=== PATIENT | male | born 1940 | race Caucasian/White ===

== ENCOUNTER 2017-05-03 10:12 | Day surgery (SDC) | payer MEDICARE ==
[~2017-05-03 10:12] MED LIST: LACTATED RINGERS 1,000 ML IV SCH; LIDOCAINE 1% 20 ML VIAL (10MG/ML) FOR IV START INTRADERMA PRN
[2017-05-03 10:45] VITALS: RESP 16; TEMP 97.9
[2017-05-03] MEDS ORDERED: LIDOCAINE 1% INJ 10MG/ML (20 ML MDV) ONE (11:16)
[2017-05-03] MEDS ORDERED: PROPOFOL 10 MG/ML 20 ML VIAL IV ONE (11:16)
--- NOTE | 2017-05-03 11:46 | P.PCN ---
Date of Procedure: 05/03/17 Procedure(s) Performed: Brief history: Patient is a pleasant 76-year-old white male, scheduled for an elective upper endoscopy as well as colonoscopy as a part of evaluation of abdominal pain and Hemoccult-positive stool. Procedure performed: Esophagogastroduodenoscopy with biopsy Colonoscopy Preoperative diagnosis: Abdominal pain Hemoccult-positive stool Anesthesia: [facility] Procedure: After informed consent was obtained from the patient was brought into the endoscopy unit and IV sedation was administered by anesthesia under continuous monitoring. Initially upper endoscopy was done. The Olympus GF 160 video endoscope was inserted inserted into the mouth and esophagus intubated without any difficulty and was gradually advanced into the stomach and duodenum and carefully examined. The bulb and second part of the duodenum appeared normal. The scope was then withdrawn into the stomach adequately insufflated with air and upon careful examination the antrum had mild patchy areas of erythema consistent with gastritis and biopsies were done from this area. The body, cardia and fundus appeared normal. The scope was then withdrawn into the esophagus. The GE junction was located at 40 cm to the incisors. It appeared regular with no erythema erosions or ulcerations. Rest of the esophagus appeared normal. Patient tolerated the procedure well. At this time the patient continued to remain sedation. Initial digital rectal examination was normal. Olympus CF 160 video colonoscope was then inserted into the rectum and gradually advanced to the cecum without any difficulty. Careful examination was performed as the scope was gradually being withdrawn. The prep was excellent. The cecum, ascending colon, transverse colon, descending colon, sigmoid colon and rectum appeared normal. Retroflexion was performed in the rectum and no lesions were noted. Patient tolerated the procedure well. Impression: 1. Upper endoscopy revealed mild antral gastritis but no evidence of esophagitis or peptic ulcer disease 2. Colostomy revealed scattered sigmoid diverticulosis but no evidence of colitis or colorectal neoplasia Recommendations: Findings of this examination were discussed with the patient as well as his family. He was advised to follow with the biopsy results. He can have a repeat colonoscopy in 10 years.
[2017-05-03 12:08] VITALS: BP 142/74; PULSE 62
== END 2017-05-03 12:21 | disposition home or self-care (01) ==
LOC: ORWHC2ENDO 10:12
PROVIDERS: ATTEND Internal Medicine Gastroenterology
DX: K29.50 Unspecified chronic gastritis without bleeding (principal); K57.30 Diverticulosis of large intestine without perforation or abscess without bleeding; K92.1 Melena; I10 Essential (primary) hypertension; E78.5 Hyperlipidemia, unspecified; I25.10 Atherosclerotic heart disease of native coronary artery without angina pectoris; Z95.5 Presence of coronary angioplasty implant and graft; I25.2 Old myocardial infarction; Z88.8 Allergy status to other drugs, medicaments and biological substances; Z79.899 Other long term (current) drug therapy; Z79.82 Long term (current) use of aspirin
CPT/HCPCS: 45378; 43239; 88305; 88342; J2001; J2704

== ENCOUNTER 2019-10-24 19:05 | Inpatient (IN) | payer MEDICARE ==
--- NOTE | 2019-10-24 20:01 | ED ---
Seizure HPI - General Chief Complaint: Seizure Stated Complaint: seizure Time Seen by Provider: 10/24/19 19:05 Source: patient, EMS, RN notes reviewed Mode of arrival: EMS Limitations: no limitations - History of Present Illness Initial Comments: This is a 71-year-old male who was transferred here from [facility] for evaluation for a possible seizure. Patient states he is going the bathroom and apparently passed out he did not recall what happened exactly it was reported he had a brief seizure was unknown how long this lasted. He was taken to [facility] where he was evaluated found not to have any evidence of any intracranial abnormality. He is awake alert oriented times threes never had anything quite like this happen to him before he does not recall any palpitations or other symptoms no focal weakness. MD Complaint: possible seizure, other - Related Data Home Medications Medication Instructions Recorded Confirmed Aspirin 81 mg PO HS 04/19/14 05/03/17 Atenolol 50 mg PO DAILY 04/19/14 05/03/17 Atorvastatin [Lipitor] 40 mg PO HS 05/01/17 05/03/17 Allergies Allergy/AdvReac Type Severity Reaction Status Date / Time enalapril AdvReac Cough Verified 05/03/17 10:42 Review of Systems ROS Statement: Those systems with pertinent positive or pertinent negative responses have been documented in the HPI. ROS Other: All systems not noted in ROS Statement are negative. Past Medical History Past Medical History: Hyperlipidemia, Hypertension, Myocardial Infarction ([place]) Last Myocardial Infarction Date:: 04/2014 History of Any Multi-Drug Resistant Organisms: None Reported Past Surgical History: Heart Catheterization With Stent, Hernia Repair Additional Past Surgical History / Comment(s): rt inguinal hernia Past Anesthesia/Blood Transfusion Reactions: No Reported Reaction Date of Last Stent Placement:: 04/18/2014 Past Psychological History: No Psychological Hx Reported Smoking Status: Former smoker Past Alcohol Use History: Occasional Past Drug Use History: None Reported - Past Family History Sister(s) Family Medical History: Cancer General Exam - General Exam Comments Initial Comments: This is a well-developed well-nourished awake alert oriented times female he does raise a Eugene Coma Scale of 15 Limitations: no limitations General appearance: alert, in no apparent distress Head exam: Present: normocephalic, other (Abrasion seen to the right forehead right side of the face and lateral orbital area no wounds requiring suturing repair no step-off no crepitation.) Eye exam: Present: normal appearance, PERRL, EOMI. Absent: scleral icterus, conjunctival injection, periorbital swelling ENT exam: Present: normal exam, mucous membranes moist Neck exam: Present: normal inspection, full ROM, other. Absent: tenderness, meningismus, lymphadenopathy Respiratory exam: Present: normal lung sounds bilaterally. Absent: respiratory distress, wheezes, rales, rhonchi, stridor Cardiovascular Exam: Present: regular rate, normal rhythm, normal heart sounds. Absent: systolic murmur, diastolic murmur, rubs, gallop, clicks GI/Abdominal exam: Present: soft, normal bowel sounds. Absent: distended, tenderness, guarding, rebound, rigid Extremities exam: Present: normal inspection, full ROM, normal capillary refill. Absent: tenderness, pedal edema, joint swelling, calf tenderness Back exam: Present: normal inspection Neurological exam: Present: alert, oriented X3, CN II-XII intact Psychiatric exam: Present: normal affect, normal mood Skin exam: Present: warm, dry, intact, normal color. Absent: rash Course Vital Signs 10/24/19 19:09 Temperature 97.8 F Pulse Rate 62 Respiratory 18 Rate Blood Pressure 172/80 O2 Sat by Pulse 96 Oximetry - Reevaluation(s) Reevaluation #1: 10/24/19 20:01 I did review the materials presented from the other hospital. Patient did get Keppra EKG shows normal sinus rhythm Medical Decision Making - Medical Decision Making The patient is awake alert right history no further symptoms. He will be admitted for evaluation by neurology. Case is discussed with Dr. Mclaughlin Disposition Clinical Impression: New onset seizure, Syncope, Facial abrasion Disposition: ADMITTED IP TO THIS [facility] Condition: Fair Referrals: Dawit Hernandez MD [Primary Care Provider] - 1-2 days
[2019-10-24] MEDS ORDERED: NALOXONE 0.4 MG/ML 1 ML VIAL IV PRN (20:10)
[2019-10-24] MEDS: SODIUM CHLORIDE 0.9% 1,000 ML IV SCH (20:25)
[2019-10-24 21:39] LABS: Glucose,Whole Blood 93 mg/dL (75-99)
[2019-10-24] MEDS: ATORVASTATIN 40 MG TAB PO SCH (22:50)
[2019-10-24] MEDS: ASPIRIN 81 MG PO SCH (22:50)
[2019-10-25] MEDS: SODIUM CHLORIDE 0.9% 1,000 ML IV SCH (08:00)
[2019-10-25] MEDS: ATENOLOL 50 MG TAB PO SCH (08:01)
--- NOTE | 2019-10-25 14:23 | P.CNNES ---
History of Present Illness Consult date: 10/25/19 Reason for Consult: seizure vs syncope History of Present Illness: Mr. Adrian Bo is a 79-year-old gentleman who is seen in neurologic consultation on October 25, 2019, via teleneurology. The patient reports that yesterday when he awoke in the morning wasn't feeling very well. He did go out for a walk. When he returned to his home he sat down in his chair and felt slightly "dizzy". He then got up and walked to the bathroom. While he was standing, urinating, he began to feel even more dizzy. The last thing he remembers is reaching for the towel rack. He does not actually recall passing out, falling or hitting the floor. He says that his daughter found him. He reports that both daughters were the garage, they did not hear him fall. The patient reports that his daughters attempted CPR and called an ambulance. The patient does not recall EMS being at his house or riding in the ambulance. The next thing he recalls is being in the emergency department. He says that he was little bit confused, when awakening, he has had figure out what happened. His daughters were not with him in the emergency department. The patient does report biting his tongue. He denies loss of bowel and bladder control. The patient denies a history of syncope. He reports having a headache yesterday while in the emergency department. He does not have a headache today. He denies soreness of his muscles, visual changes, difficulty with speech and swallowing, weakness in his arms and legs and paresthesias. The patient does report feeling lightheaded when he arises from the seated position, quickly. The patient denies a history of seizure. He does reports being told that he had a "mini stroke" last year. The symptoms he describes related to this event, sound to be consistent with transient global amnesia. Review of Systems Negative except for that noted in history of chief complaint Past Medical History Past Medical History: Hyperlipidemia, Hypertension, Myocardial Infarction ([place]) Last Myocardial Infarction Date:: 04/2014 History of Any Multi-Drug Resistant Organisms: None Reported Past Surgical History: Heart Catheterization With Stent, Hernia Repair Additional Past Surgical History / Comment(s): rt inguinal hernia Past Anesthesia/Blood Transfusion Reactions: No Reported Reaction Date of Last Stent Placement:: 04/18/2014 Past Psychological History: No Psychological Hx Reported Smoking Status: Former smoker Past Alcohol Use History: Occasional Additional Past Alcohol Use History / Comment(s): QUIT SMOKING 40YRS, SMOKED FOR 10 YRS, 1 PPD. Past Drug Use History: None Reported - Past Family History Sister(s) Family Medical History: Cancer Medications and Allergies Home Medications Medication Instructions Recorded Confirmed Type Aspirin 81 mg PO HS 04/19/14 10/25/19 History Atenolol 50 mg PO DAILY 04/19/14 10/25/19 History Atorvastatin [Lipitor] 40 mg PO HS 05/01/17 10/25/19 History Allergies Allergy/AdvReac Type Severity Reaction Status Date / Time enalapril AdvReac Cough Verified 10/25/19 11:00 Physical Examination - Vital Signs Vital Signs: Vital Signs Temp Pulse Pulse Resp BP BP Pulse Ox 10/25/19 12:04 97.9 F 60 16 128/65 95 10/25/19 08:03 98.1 F 58 L 16 129/62 93 L 10/25/19 04:00 55 L 16 94 L 10/25/19 00:00 70 18 10/24/19 21:25 97.8 F 80 18 146/85 96 10/24/19 21:21 70 146/85 10/24/19 20:52 98.2 F 60 18 163/71 98 10/24/19 19:09 97.8 F 62 18 172/80 96 Intake and Output 10/24/19 10/25/19 10/25/19 22:59 06:59 14:59 Intake Total 720 720 230 Balance 720 720 230 Intake: Intake, IV Titration 320 320 Amount Sodium Chloride 0.9% 1, 320 320 000 ml @ 80 mls/hr IV . [id number] [facility] Rx#:[id number] Oral 400 400 230 Other: # Voids 1 1 Weight 67.5 kg 67.5 kg Gen.: The patient is reclining in the bed. He is well-nourished, well-developed and in no acute distress. HEENT: Head is normocephalic. There is evidence of laceration, ecchymosis and abrasion to the right forehead. Fundus not visualized. There is no scleral icterus. Mucous membranes are moist. Heart: Regular rate and rhythm Lungs: Clear to auscultation Extremities: Without edema Neurological examination Mental status: The patient is awake, alert and oriented 3. His speech is clear. Cranial nerves: Pupils are equal, round and reactive to light. Visual grant are full to confrontation. Extraocular muscles are intact. There is no nystagmus. Facial sensation is intact. There is no facial asymmetry. Hearing is grossly intact. Uvula and palate are midline. Shoulder shrug is symmetric. Tongue protrudes midline. There is evidence of a very small laceration on the right side of the tip of the tongue. Motor: Strength is 5/5 throughout Sensation: Grossly intact to light touch Coordination: Finger to nose and rapid alternating movements are intact Deep tendon reflexes: 2+/4+ throughout Gait: Not assessed Assessment and Plan Assessment: Impressions 1. Micturition syncope 2. Symptoms of orthostatic hypotension 3. Concussion Plan: Recommendations 1. Check orthostatic vitals 2. Possible change or adjustment of antihypertensive medication if the patient is found to be orthostatic 3. Advised the patient to increase his fluid intake 4. Discussed the benefit of wearing thigh-high support hose Time with Patient: Greater than 30
--- NOTE | 2019-10-25 17:41 | XR ---
EXAMINATION TYPE: XR orbit pre-MRI foreign body DATE OF EXAM: 10/25/2019 COMPARISON: NONE HISTORY: Screening exam. MRI. TECHNIQUE: 3 views FINDINGS: Orbital margins are intact. There is no evidence of radiopaque foreign body. IMPRESSION: Negative exam.
--- NOTE | 2019-10-25 17:41 | HP ---
HISTORY AND PHYSICAL DATE OF ADMISSION: 10/24/2019. CHIEF COMPLAINT: Syncope. HISTORY OF PRESENT ILLNESS: This is an another admission for this 79-year-old white male who has been in fairly good health. Several years ago, he underwent cardiac catheterization for chest pain and had a single stent placed. He has been doing well since then. He is occasionally given to significant amount of stress related to a grandson that he has been trying to help. He apparently was going to the bathroom and urinating and then suddenly passed out. He stated that he felt that just before this that "something was not right." He felt somewhat dizzy. He had no chest pain, focal neurologic problems, diplopia, change in vision or hearing, chest pain, palpitations, diaphoresis, etc. He passed out on the bathroom floor and was found by one of his daughters. He was taken to the hospital and regained consciousness in the emergency room. He cannot report any loss of sphincter control and he had no sensation of palpitations, etc. His blood pressure is usually normal. In the emergency room and [facility], he was evaluated and then transferred to this institution for stroke evaluation. REVIEW OF SYSTEMS: He is currently having no headaches, neurologic problems. No difficulty with vision or hearing, chest pain, cough, shortness of breath, diaphoresis, orthopnea, abdominal pain, nausea, vomiting, hematemesis, melena, hematochezia, colitis, diverticulosis, diverticulitis, hemorrhoids, jaundice, hepatitis, renal failure, frequency, urgency, dysuria, hematuria, diabetes, etc. Past medical history, family history and personal and social histories reveal that he is on atenolol 50 mg once a day, aspirin 81 mg a day and atorvastatin 40 mg. He does not smoke and he does not drink. PHYSICAL EXAMINATION: Temperature 97.8, blood pressure 172/80, respirations 18 and pulse 62 and regular. In general, he appeared to be slender, well developed, well nourished, in no acute distress. Awake and alert. He denied headache. Head, ears, eyes, nose, mouth and throat demonstrated three superficial abrasions on the right forehead. Pupils are equal, round and reactive and gaze conjugate. Carotids are normal. Neck veins not distended. Chest is clear to auscultation and percussion. Cardiac exam demonstrated a grade 2 systolic murmur heard at the left sternal border. There is no S3 or S4. Abdomen is soft, nontender without visceromegaly or masses. Bowel sounds present. Extremities normal. Neurologically he is intact. IMPRESSION: 1. Syncopal episode, etiology unknown. 2. Abrasions of the right forehead. 3. Coronary artery disease with a history of stenting 5/6 years ago. Rule out cardiac arrhythmia. 1. Rule out MEDICAL COLLECTIONS REPRESENTATIVE lesion. PLAN: 1. Bed rest. 2. IV fluids. 3. Frequent monitoring of his neurologic status and vital signs. 4. Consult Neurology. 5. Consult with Cardiology. 6. MRI and MRA of the brain. 7. EEG. MMODL / IJN: [id number] /
--- NOTE | 2019-10-25 17:47 | PN ---
PROGRESS NOTE DATE OF SERVICE: 10/25/2019. CHIEF COMPLAINT: Syncopal episode. HISTORY OF PRESENT ILLNESS: This gentleman is doing well. He feels fine. He has had no arrhythmias, significant changes in his vital signs, chest pain, headache, palpitations, shortness of breath, etc. PHYSICAL EXAMINATION: Chest is clear. Cardiac exam is normal with the same murmur. Abdomen is soft and nontender. Extremities are normal. Carotids are normal. IMPRESSION: 1. Syncopal episode, etiology unknown. 2. Cardiac murmur. 3. History of coronary artery disease. PLAN: 1. He has been seen by Neurology and will obtain a cardiology consult. 2. Echocardiogram. 3. MRI and MRA of the brain and cervical vasculature. MMODL / IJN: [id number] /
[2019-10-25] MEDS: ATORVASTATIN 40 MG TAB PO SCH (21:01)
[2019-10-25] MEDS: ASPIRIN 81 MG PO SCH (21:01)
[2019-10-26] MEDS: SODIUM CHLORIDE 0.9% 1,000 ML IV SCH ×2 (08:13→12:37)
[2019-10-26] MEDS: ATENOLOL 50 MG TAB PO SCH (08:13)
--- NOTE | 2019-10-26 10:28 | CONS ---
CONSULTATION CHIEF COMPLAINT: Syncope. Adrian is a 79-year-old gentleman with history of coronary artery disease, status post prior angioplasty, who presented to the hospital having had an episode of syncope. He states that he got up from his bed, went up to the bathroom, felt dizzy and then passed out suddenly. Did not have any bladder or bowel incontinence. Did not have any focal neurological deficits. Did not have seizures. He is admitted to hospital for the same and has been symptom-free since that time. The patient had an EKG that revealed sinus bradycardia, but is otherwise within normal limits. He is awaiting an MRI and just had an echocardiogram and pending results. On the monitor, he is in sinus rhythm. PAST MEDICAL HISTORY: Significant for coronary artery disease, status post angioplasty. ALLERGIES: Allergic to ENALAPRIL. MEDICATIONS: Medications include aspirin, atenolol, atorvastatin. FAMILY HISTORY: Negative for premature coronary artery disease. SOCIAL HISTORY: Negative for current smoking, EtOH abuse or drug abuse. REVIEW OF SYSTEMS: HEENT is unremarkable. CARDIAC: As described above. RESPIRATORY: As described above. GI: Negative. GENITOURINARY: Negative. ALLERGY/IMMUNOLOGY: Negative. SKIN: Negative. MUSCULOSKELETAL: Significant for arthritis. PSYCHOSOCIAL: Negative. ENDOCRINE: Negative. DERM: Negative. CONSTITUTIONAL: Negative. ONCOLOGICAL: Negative SENIOR TELECOMMUNICATIONS TECHNICIAN: Significant for syncope. Rest of the system review is not relevant. PHYSICAL EXAMINATION: On exam, patient is afebrile. Heart rate is 65 beats per minute. Blood pressure is 150/71. Respiratory rate is 18. O2 sat is 97% on room air. There is no jugular venous distention. Carotid upstroke is normal. There is no bruit. Chest exam reveals good air entry bilaterally. Heart exam reveals first and second heart sounds. No gallop. No murmur. Abdomen is soft. Exam of extremities did not reveal any edema. Peripheral pulses are felt. SENIOR TELECOMMUNICATIONS TECHNICIAN exam did not reveal focal neurological deficits. LABS: Labs show that potassium is 5, creatinine is 1.1. LDL cholesterol is 70. Hemoglobin is 13.5, platelet count is 188. ASSESSMENT: 1. Syncope probably vasovagal in origin. 2. Coronary artery disease, status post angioplasty. PLAN: Will review the echocardiogram once the results are available. We will follow the MRI results and will continue to monitor the patient on telemetry. If this workup is benign and if this comes back unremarkable, he is stable for discharge. Followup with me in the office and will have an outpatient stress test done. MMRAINERL / IJN: [id number] /
--- NOTE | 2019-10-26 11:12 | ECHOF ---
Referral Reason:syncope, murmur, CAD. MEASUREMENTS -------- HEIGHT: 172.7 cm WEIGHT: 67.1 kg BP: 150/70 RVIDd: 3.5 cm (< 3.3) IVSd: 1.1 cm (0.6 - 1.1) LVIDd: 5.2 cm (3.9 - 5.3) LVPWd: 1.0 cm (0.6 - 1.1) IVSs: 1.7 cm LVIDs: 3.4 cm LVPWs: 1.9 cm LA Diam: 3.9 cm (2.7 - 3.8) LAESV Index (A-L): 34.60 ml/m Ao Diam: 3.5 cm (2.0 - 3.7) AV Cusp: 2.3 cm (1.5 - 2.6) LA Diam: 3.7 cm (2.7 - 3.8) MV EXCURSION: 18.048 mm (> 18.000) MV EF SLOPE: 85 mm/s (70 - 150) EPSS: 0.4 cm MV E Josh: 0.86 m/s MV DecT: 206 ms MV A Josh: 0.94 m/s MV E/A Ratio: 0.91 RAP: 5.00 mmHg RVSP: 34.01 mmHg FINDINGS -------- Sinus rhythm. This was a technically good study. The left ventricular size is normal. There is borderline concentric left ventricular hypertrophy. Overall left ventricular systolic function is normal with, an EF between 60 - 65 %. The right ventricle is mildly enlarged. LA is moderately dilated 34-39 ml/m2 The right atrium is normal in size. Interatrial and interventricular septum intact. There is mild aortic valve sclerosis. Mild mitral annular calcification present. Moderate mitral regurgitation is present. Mild tricuspid regurgitation present. There is borderline pulmonary hypertension. The right ventr icular systolic pressure, as measured by Doppler, is 34.01mmHg. Trace/mild (physiologic) pulmonic regurgitation. The aortic root size is normal. Normal inferior vena cava with normal inspiratory collapse consistent with estimated right atrial pre ssure of 5 mmHg. There is no pericardial effusion. CONCLUSIONS -------- 1. Sinus rhythm. 2. This was a technically good study. 3. The left ventricular size is normal. 4. There is borderline concentric left ventricular hypertrophy. 5. Overall left ventricular systolic function is normal with, an EF between 60 - 65 %. 6. The right ventricle is mildly enlarged. 7. LA is moderately dilated 34-39 ml/m2 8. The right atrium is normal in size. 9. Interatrial and interventricular septum intact. 10. There is mild aortic valve sclerosis. 11. Mild mitral annular calcification present. 12. Moderate mitral regurgitation is present. 13. Mild tricuspid regurgitation present. 14. There is borderline pulmonary hypertension. 15. The right ventricular systolic pressure, as measured by Doppler, is 34.01mmHg. 16. Trace/mild (physiologic) pulmonic regurgitation. 17. The aortic root size is normal. 18. Normal inferior vena cava with normal inspiratory collapse consistent with estimated right atrial pressure of 5 mmHg. 19. There is no pericardial effusion. FORMULA ROOM WORKER: Mimi Rose RDCS
--- NOTE | 2019-10-26 11:47 | MR ---
EXAMINATION TYPE: MR brain wo/w mraneck wo/wcon DATE OF EXAM: 10/26/2019 COMPARISON: CT 10/24/2019 HISTORY: 79-year-old male Syncope TECHNIQUE: Multiplanar, multisequence images of the brain and brainstem were acquired before and aft er administration of 7 mL IV Gadavist. Diffusion weighted imaging is performed. 2-D belh-bu-nvefxm imaging of the carotid vessels of the neck. Additional multiplanar, multisequence images of the neck before and after IV contrast. 3-D reconstructions generated on a dedicated independent workstation. FINDINGS: BRAIN: No evidence for acute infarction, hemorrhage, mass, mass effect, midline shift, herniation, effacemen t of basal cisterns, or extra-axial fluid collection. Mild generalized supratentorial volume loss. No hydrocephalus. Major intracranial flow voids are intact. T2/FLAIR weighted sequences show moderate scattered burden of right white matter change within the pe riventricular and deep white matter regions of both cerebral hemispheres. Midline structures demonstrate normal morphology. The craniocervical junction is normal. Post contrast images demonstrate no evidence of pathologic enhancement. Dural venous sinuses are pat ent. Mild mucosal thickening scattered throughout the sinuses. MRA NECK: There is focal atherosclerotic narrowing at the proximal right carotid bulb, moderate at approximatel y 60%. Remainder of the right common and internal carotid artery is patent. There is focal atherosclerotic narrowing at the proximal left carotid bulb, severe at approximately 7 0%. Conventional arch vessel branching anatomy. The vertebral arteries are codominant and patent throughout the course. The basilar artery appears normal. IMPRESSION: BRAIN: 1. Moderate scattered burden of chronic small vessel ischemic disease. No enhancing lesions or acute intracranial abnormality seen. 2. Mild chronic paranasal sinus disease. MRA NECK: 1. Focal atherosclerotic change at the bilateral proximal carotid bulbs. 2. This results in a severe, approximately 70% proximal left ICA stenosis. 3. Moderate, approximately 60% proximal right ICA stenosis.
--- NOTE | 2019-10-26 12:38 | P.PN ---
Subjective Progress Note Date: 10/26/19 Patient was seen for a follow-up. Offers no new complaints. Patient was seen by Dr. Dougherty yesterday. Patient came to the hospital after he had a syncopal spell. Patient says that he was sitting in the living room, wanted to go to the bathroom. He got dizzy. While he was standing, trying to pass urine, he got really dizzy and then passed out, and woke up in the hospital. Patient didn't bite his tongue and lost control of urine. Patient denies any previous history of similar issues. No history of syncope or seizure. At present feels fine, wants to go home. Patient has hypertension, hyperlipidemia. He has smoked 1 pack per day for 10 years, quit 40 years ago. Objective - Vital Signs Vital signs: Vital Signs Temp 97.6 F 10/26/19 08:10 Pulse 65 10/26/19 08:10 Resp 17 10/26/19 08:10 BP 153/71 10/26/19 08:10 Pulse Ox 97 10/26/19 08:10 Intake & Output 10/25/19 10/26/19 10/26/19 18:59 06:59 18:59 Intake Total 230 240 Output Total 280 Balance 230 -280 240 Weight 67.3 kg Intake: Oral 230 240 Output: Urine 280 Other: Voiding Method Toilet # Voids 1 - Exam Patient is alert and awake. Patient is an elderly male, mental status, speech and language functions are normal. Cranial nerves normal. Muscle strength normal. Gait normal. Patient's orthostatics as of yesterday include supine blood pressure 126/60, pulse rate 82, sitting up was 140/73 and pulse rate 95 and standing up was 132/64 and pulse rate 86. - Labs CBC & Chem 7: 10/26/19 12:42 10/26/19 12:42 Assessment and Plan Assessment: * Possible vasovagal syncope, versus seizure * Bilateral ICA stenosis, 70% on the left and 60% on the right. * Hypertension * Hyperlipidemia Plan: * EEG was normal awake pattern. No epileptiform activity seen. No indication for antiepileptic medication. * MRI of the brain showed moderate scattered burden of chronic small vessel ischemic disease. No enhancing lesions or acute intracranial abnormality seen. Mild chronic paranasal sinus disease. MRA of the neck showed focal atherosclerotic change of the bilateral proximal carotid bulbs. This results in severe, approximately 70% proximal left ICA stenosis. Moderate, approximately 60% proximal right ICA stenosis. * 2-D echo is normal, showed sinus rhythm, borderline concentric LVH, EF 60-65%. Left atrium is moderately dilated. Interatrial and interventricular septum intact. Mild aortic valve sclerosis. Borderline pulmonary hypertension. * Cardiology has seen the patient. Following telemetric monitoring. * Await vascular surgical consultation regarding carotid stenosis. * We will check hemoglobin A1c and fasting a.m. lipid panel. * Continue aspirin 81 mg, Lipitor 40 mg. * Neurologically clear, if cleared by vascular surgery. * Patient was informed of [place] state law of no driving, unless seizure free for 6 months, climbing ladders, operate dangerous machinery or unsupervised swimming.
[2019-10-26 13:12] LABS: Basophils % (A) 1 %; Eosinophils # (A) 0.2 k/uL (0-0.7); Eosinophils % (A) 3 %; HCT 43.2 % (39.0-53.0); HGB 14.3 gm/dL (13.0-17.5); Lymphocytes # (A) 1.7 k/uL (1.0-4.8); Lymphocytes % (A) 24 %; MCV 90.8 fL (80.0-100.0); Mean Platelet Volume 7.3; Monocytes # (A) 0.4 k/uL (0-1.0); Monocytes % (A) 5 %; Neutrophils # (A) 4.6 k/uL (1.3-7.7); Neutrophils % (A) 65 %; Platelet Count 185 k/uL (150-450); RBC 4.76 m/uL (4.30-5.90); RDW 12.6 % (11.5-15.5); WBC 7.1 k/uL (3.8-10.6)
[2019-10-26 13:25] VITALS: RESP 18
[2019-10-26 13:31] LABS: ALT 21 U/L (4-49); AST 38 U/L (17-59); African American GFR (CKD) >90 (>60 ml/min/1.73 sqM); Alkaline Phosphatase 77 U/L (38-126); Anion Gap 5 mmol/L; Blood Urea Nitrogen 20 mg/dL (9-20); Carbon Dioxide 30 mmol/L (22-30); Chloride 105 mmol/L (98-107); Cholesterol 134 mg/dL (<200); Glucose 81 mg/dL (74-99); HDL Cholesterol 47 mg/dL (40-60); LDL Cholesterol,Calculated 57 mg/dL (0-99); Non-African American GFR(CKD) 83 (>60 ml/min/1.73 sqM); Potassium 4.2 mmol/L (3.5-5.1); Sodium 140 mmol/L (137-145); Total Bilirubin 0.4 mg/dL (0.2-1.3); Total Protein 6.7 g/dL (6.3-8.2); Triglycerides 148 mg/dL (<150)
--- NOTE | 2019-10-26 13:34 | EEG ---
ELECTROENCEPHALOGRAM REPORT DATE OF SERVICE: 10/26/2019. PREAMBLE: This 79-year-old male with a syncopal spell versus seizure. This study is performed to evaluate for epileptiform activity. EEG FINDINGS: A routine 21 channel awake digital EEG recording was accomplished utilizing the 10/20 international system with bipolar and referential montages. The background consists of well developed, well regulated, moderate voltage activity in 8-9 Hz alpha. Background is posterior dominant and reactive to eye opening and closing. Photic driving response was not seen. Different stages of sleep were not seen. No focal or generalized epileptiform activity was seen. EKG rhythm lead revealed no arrhythmia. IMPRESSION: This is a normal awake EEG. No focal lateralized or epileptiform activity was seen. MMODL / IJN: [id number] /
[2019-10-26] MEDS ORDERED: NADOLOL 20 MG TAB PO SCH (13:45)
--- NOTE | 2019-10-26 14:08 | P.GSCN ---
History of Present Illness Consult date: 10/26/19 Reason for Consult: Carotid stenosis History of present illness: The patient is a 71-year-old male with history of coronary artery di sease, status post prior angioplasty approximately 5 years ago and is maintained on a low dose daily aspirin and Lipitor. The patient states Saturday he experienced some dizziness when he sat up from the couch to walk to the bathroom, once in the restroom felt increased dizziness grabbed onto a total bar that was the last thing he remembered. Patient reports his daughters had found him lying on the bathroom floor called EMS and was brought to [facility] for further evaluation. Patient was then transferred to [facility] for neurology services. Patient denied any change in vision, change in speech, weakness, or facial drooping and continues to deny any focal deficits. We have been asked to evaluate the patient regarding carotid stenosis. The patient does not recall any prior history of carotid stenosis. He is a former 1 pack per day smoker for at least 10 years, who states he quit approximately 40 years ago. He denies any shortness of breath, chest pain, pain in lower extremities at rest or with ambulation, changes in vision, speech, or upper/lower extremity weakness. MRI of the brain showed moderate scattered burden of chronic small vessel ischemia with no enhancing lesions or acute intracranial abnormality seen. Mild chronic paranasal sinus disease. MRA of the neck showed focal sclerotic change in the bilateral proximal carotid bulbs, with approximately 70% proximal left ICA stenosis and approximately 60% proximal right ICA stenosis. Echocardiogram showed sinus rhythm, borderline concentric LVH, EF 60-65%. Left atrium is moderately dilated. Mild aortic valve sclerosis, borderline pulmonary hypertension. EEG was performed today by Dr. Rueda, which showed a normal awake EEG. No focal lateralized or epileptiform activity was seen. Cardiology and neurology following the patient. Review of Systems Review of systems completed and all pertinent positives and negatives as stated in HPI Past Medical History Past Medical History: Hyperlipidemia, Hypertension, Myocardial Infarction (DE) Last Myocardial Infarction Date:: 04/2014 History of Any Multi-Drug Resistant Organisms: None Reported Past Surgical History: Heart Catheterization With Stent, Hernia Repair Additional Past Surgical History / Comment(s): rt inguinal hernia Past Anesthesia/Blood Transfusion Reactions: No Reported Reaction Date of Last Stent Placement:: 04/18/2014 Past Psychological History: No Psychological Hx Reported Smoking Status: Former smoker Past Alcohol Use History: Occasional Additional Past Alcohol Use History / Comment(s): QUIT SMOKING 40YRS, SMOKED FOR 10 YRS, 1 PPD. Past Drug Use History: None Reported - Past Family History Sister(s) Family Medical History: Cancer Medications and Allergies Home Medications Medication Instructions Recorded Confirmed Type Aspirin 81 mg PO HS 04/19/14 10/25/19 History Atenolol 50 mg PO DAILY 04/19/14 10/25/19 History Atorvastatin [Lipitor] 40 mg PO HS 05/01/17 10/25/19 History Allergies Allergy/AdvReac Type Severity Reaction Status Date / Time enalapril AdvReac Cough Verified 10/25/19 11:00 Surgical - Exam Vital Signs Temp Pulse Resp BP Pulse Ox 97.8 F 62 18 172/80 96 10/24/19 19:09 10/24/19 19:09 10/24/19 19:09 10/24/19 19:09 10/24/19 19:09 General appearance: The patient is alert, oriented, in no acute distress. HET: Head is normocephalic and atraumatic. Pupils are equal and reactive. Oropharynx is clear without lesions. Neck: Supple without lymphadenopathy. Trachea midline. No audible carotid bruit laterally. Heart: S1 S2. Regular rate and rhythm. Lungs: No crackles or wheezes are heard. Extremities: Normal skin color and turgor. No cyanosis, rash, ulceration, clubbing, or edema. Radial and pedal pulses are 2/4 bilaterally. Neurological: No focal deficits. Strength and sensation are grossly intact. Alert and oriented 3. Results MRI brain: Impression shows moderate scattered burden of chronic small vessel ischemic disease. No enhancing lesions or acute intracranial abnormality seen. Mild chronic paranasal sinus disease. MRA neck: Impression shows focal arthrosclerotic change in the bilateral proxim al carotid bulbs. This results in a severe, approximately 70% proximal left ICA stenosis. Moderate, approximately 60% proximal right ICA stenosis. - Labs 10/26/19 12:42 10/26/19 12:42 Diabetes panel 10/26/19 Range/Units 12:42 Sodium 140 (137-145) mmol/L Potassium 4.2 (3.5-5.1) mmol/L Chloride 105 (98-107) mmol/L Carbon Dioxide 30 (22-30) mmol/L BUN 20 (9-20) mg/dL Creatinine 0.88 (0.66-1.25) mg/dL Glucose 81 (74-99) mg/dL Calcium 9.0 (8.4-10.2) mg/dL AST 38 (17-59) U/L ALT 21 (4-49) U/L Alkaline Phosphatase 77 (38-126) U/L Total Protein 6.7 (6.3-8.2) g/dL Albumin 4.0 (3.5-5.0) g/dL Triglycerides 148 (<150) mg/dL HDL Cholesterol 47 (40-60) mg/dL Calcium panel 10/26/19 Range/Units 12:42 Calcium 9.0 (8.4-10.2) mg/dL Albumin 4.0 (3.5-5.0) g/dL Pituitary panel 10/26/19 Range/Units 12:42 Sodium 140 (137-145) mmol/L Potassium 4.2 (3.5-5.1) mmol/L Chloride 105 (98-107) mmol/L Carbon Dioxide 30 (22-30) mmol/L BUN 20 (9-20) mg/dL Creatinine 0.88 (0.66-1.25) mg/dL Glucose 81 (74-99) mg/dL Calcium 9.0 (8.4-10.2) mg/dL Adrenal panel 10/26/19 Range/Units 12:42 Sodium 140 (137-145) mmol/L Potassium 4.2 (3.5-5.1) mmol/L Chloride 105 (98-107) mmol/L Carbon Dioxide 30 (22-30) mmol/L BUN 20 (9-20) mg/dL Creatinine 0.88 (0.66-1.25) mg/dL Glucose 81 (74-99) mg/dL Calcium 9.0 (8.4-10.2) mg/dL Total Bilirubin 0.4 (0.2-1.3) mg/dL AST 38 (17-59) U/L ALT 21 (4-49) U/L Alkaline Phosphatase 77 (38-126) U/L Total Protein 6.7 (6.3-8.2) g/dL Albumin 4.0 (3.5-5.0) g/dL Assessment and Plan Assessment: 1. Carotid stenosis, approximately 70% left ICA stenosis and 60% right ICA stenosis 2. Syncope and collapse 3. Coronary artery disease, status post angioplasty Plan: Discussed this patient with Dr. Conteh. Patient is to follow-up with Dr. Conteh upon discharge and will do carotid ultrasound outpatient. Patient is to continue low-dose aspirin and Lipitor 40 mg daily. Patient may be discharged from a vascular surgery standpoint. Thank you for this consultation and allowing us to take part in the plan of care of this patient during his hospital stay. The above dictated assessment and findings were discussed with Dr. Conteh. The impression and plan of care have been directed as dictated.
--- NOTE | 2019-10-26 15:26 | CDI ---
Documentation Clarification Form Date: 10/26/2019 03:00:32 PM From: Cheyenne OatesLORETA harvey, CCDS Admit Date: 10/26/2019 08:27:00 AM Patient Name: Adrian Bo Visit Number: [id number] Discharge Date: ATTENTION: The Clinical Documentation Specialists (CDI) and [facility] Coding Staff appreciate your assistance in clarifying documentation. Please respond to the clarification below the line at the bottom and electronically sign. The CDI & [facility] Coding staff will review the response and follow-up if needed. Please note: Queries are made part of the Legal Health Record. If you have any questions, please contact the author of this message via ITS. Dr. Dawit Hernandez: Patient presented to the ED on 10/23 after a syncopal episode at home. The cause of the patient's syncope is not clear. Per the Neurology Consult on 10/24: Micturition syncope. Symptoms of orthostatic hypotension. Concussion. Per the Neurology Progress Note 10/25: Possible vasovagal syncope vs seizure. Per the Cardiology Consult on 10/25: Syncope probably vasovagal in origin. CAD w/angioplasty. Per the Vascular Surgeon Consult on 10/25: Carotid stenosis, 70% left ICA stenosis & 60% right ICA stenosis. Syncope & collapse. CAD. A relationship between diagnoses cannot be assumed unless documented as such by the attending physician. In order to capture the severity of condition; please document the relationship, if any, between these diagnoses. History/Risk Factors: CAD status post angioplasty. Hyperlipidemia, Hypertension, CT 04/18, Ht cath w/stent, Former smoker. Clinical Indicators: Presented to the ED on 10/23 as above. Admitted as Observation, Admitted as Inpatient on 10/25. 10/25 ECHO: EF 55-65%, borderline LVH, Mild aortic valve sclerosis, Mod MR, Mild TR, borderline pulm htn. 10/25 EEG: Normal awake EEG. Treatment 10/23: IV Narcan, po Aspirin, po Lipitor. 10/24: po Tenormin. 10/25: po Corgard Please clarify and document your clinical opinion in the progress notes and discharge summary if any relationship (due to, caused by, secondary to) exists between these two diagnoses. Please include clinical findings supporting your diagnosis. Syncope due to: Vasovagal Orthostatic hypotension Seizure Carotid stenosis Other, please specify: Unable to determine (no explanation for clinical findings) (Last Revision: May 2017) MTDD
[2019-10-26 17:21] VITALS: BP 162/88; PULSE 68; TEMP 97.7
--- NOTE | 2019-10-26 19:44 | PN ---
PROGRESS NOTE CHIEF COMPLAINT: Syncope. HISTORY OF PRESENT ILLNESS: This gentleman is doing fine. He is having no further problems. He has had no chest pain, palpitations, dizziness, syncope, etc. Studies are being done. His echocardiogram is unremarkable except for some mild mitral insufficiency and pulmonary hypertension. However, he has significant stenosis in one of his carotids. PHYSICAL EXAMINATION: Chest is clear. Cardiac exam is normal. Abdomen soft and nontender. IMPRESSION: 1. Syncope, etiology unknown. 2. History of coronary artery disease. PLAN: Vascular Surgery consult. MMODL / IJN: [id number] /
[2019-10-26 20:21] LABS: Hemoglobin A1C 5.4 % (4.0-6.0)
--- NOTE | 2019-10-29 10:43 | MISC ---
MISCELLANOUS REPORT Unable to determine. MMODL / IJN: [id number] /
--- NOTE | 2019-10-29 14:10 | DS ---
DISCHARGE SUMMARY DATE OF SERVICE: 10/26/2019. CHIEF COMPLAINT: Syncopal episode. HISTORY OF PRESENT ILLNESS AND PHYSICAL EXAM: Details of this man's history and physical can be found in the initial workup. COURSE IN THE HOSPITAL: After admission, he was placed on bedrest, started on intravenous fluids and placed on telemetry. He had no arrhythmias. MRI of the cervical vasculature in the brain was done and it did demonstrate a 70% narrowing in the left carotid system. He was seen by Neurology and Cardiology. He had no further difficulties and before he left the hospital was seen by Vascular Surgery who will follow him up as an outpatient. He will go home on his usual activity, diet and medication and his workup will be continued as an outpatient. He will be seen in the office in several days. FINAL DIAGNOSES: 1. Syncopal episode. The etiology unknown. 2. Atherosclerotic cardiovascular disease. 3. Syncope, left carotid occlusive disease, ASCVD. 4. Coronary artery disease. OPERATIONS: None. CONSULTATIONS: Cardiology, Neurology and Vascular Surgery. He is improved. MMODL / IJN: [id number] /
== END 2019-10-26 18:45 | disposition home or self-care (01) | DRG 312 ==
LOC: EC 19:05 → 3SCARD 20:16 → OBSVTOIN 10-26 08:27
PROVIDERS: ADMIT Family Medicine; ATTEND Family Medicine
DX: R55 Syncope and collapse (principal); S06.0X9A Concussion with loss of consciousness of unspecified duration, initial encounter; I27.20 Pulmonary hypertension, unspecified; I65.23 Occlusion and stenosis of bilateral carotid arteries; I08.0 Rheumatic disorders of both mitral and aortic valves; E78.5 Hyperlipidemia, unspecified; R40.2362 Coma scale, best motor response, obeys commands, at arrival to emergency department; R40.2142 Coma scale, eyes open, spontaneous, at arrival to emergency department; R40.2252 Coma scale, best verbal response, oriented, at arrival to emergency department; I10 Essential (primary) hypertension; I25.10 Atherosclerotic heart disease of native coronary artery without angina pectoris; I25.2 Old myocardial infarction; S00.81XA Abrasion of other part of head, initial encounter; S01.512A Laceration without foreign body of oral cavity, initial encounter; Z79.82 Long term (current) use of aspirin; Z79.899 Other long term (current) drug therapy; Z95.5 Presence of coronary angioplasty implant and graft; Z98.890 Other specified postprocedural states; Z87.891 Personal history of nicotine dependence; Z86.73 Personal history of transient ischemic attack (TIA), and cerebral infarction without residual deficits; Z88.8 Allergy status to other drugs, medicaments and biological substances; W18.30XA Fall on same level, unspecified, initial encounter; Y92.002 Bathroom of unspecified non-institutional (private) residence as the place of occurrence of the external cause; Z80.9 Family history of malignant neoplasm, unspecified
CPT/HCPCS: 70030; 70549; 70553; 80053; 80061; 83036; 85025; 85379; 93306; 95816; 99285

== ENCOUNTER → 2021-05-15 | Outpatient (CLI) | payer MEDICARE ==
--- NOTE | 2021-06-16 11:30 | EM ---
EVENT MONITOR The patient was monitored between May 15 and May 30, 2021. The rhythm strip was reviewed and revealed a sinus mechanism with normal conduction. Single PVCs were noted. No pauses were noted. No atrial fibrillation was reported. STEPHANIE / JEANNEN: [id number] /
== END | disposition home or self-care (01) ==
LOC: RADECHMAIN 12:03
PROVIDERS: ATTEND Family Medicine
DX: R55 Syncope and collapse (principal); I10 Essential (primary) hypertension; I25.10 Atherosclerotic heart disease of native coronary artery without angina pectoris; G30.9 Alzheimer's disease, unspecified
CPT/HCPCS: 93270